=== PATIENT | male | born 1980 | race African-American/Black ===

== ENCOUNTER 2020-07-18 20:22 | Emergency (ER) | payer OTHER, BC | END 2020-07-18 21:31 | disposition home or self-care (01) | LOC: ERS 20:22 | DX: S83.92XA Sprain of unspecified site of left knee, initial encounter (principal); W00.0XXA Fall on same level due to ice and snow, initial encounter ==

== ENCOUNTER 2020-08-18 13:24 | Outpatient (CLI) | payer OTHER | END 2020-08-18 13:25 | disposition home or self-care (01) | LOC: TBSIIMAG 13:24 | PROVIDERS: ATTEND Family Medicine | DX: M23.92 Unspecified internal derangement of left knee (principal) ==